=== PATIENT | male | born 1940 | race Caucasian/White ===

== ENCOUNTER 2018-08-08 14:09 | Emergency (ER) | payer OTHER ==
[~2018-08-08] VITALS: Ht 162.6 cm; Wt 68.0 kg
[2018-08-08] MEDS ORDERED: FLOVENT DISKU100 MCG IH (14:17)
[2018-08-08] MEDS ORDERED: SPIRIVA RESPIMAT4 G1 IH (14:18)
[2018-08-08] MEDS ORDERED: TOPROL XL25 MG PO (14:19)
[2018-08-08] MEDS ORDERED: LIPITOR40 MG PO (14:19)
[2018-08-08] MEDS ORDERED: ASA81 MG PO (14:19)
[2018-08-08] MEDS ORDERED: CARDIZEM CD240 MG PO (14:19)
[2018-08-08] MEDS ORDERED: PLAVIX75 MG PO (14:19)
== END 2018-08-08 20:46 | disposition home or self-care (01) ==
LOC: ER 14:09
DX: R50.9 Fever, unspecified (principal); J11.1 Influenza due to unidentified influenza virus with other respiratory manifestations